=== PATIENT | female | born 1990 | race African-American/Black ===

== ENCOUNTER 2020-12-24 22:01 | Emergency (ER) | payer OTHER, BC ==
[~2020-12-24] VITALS: Ht 157.5 cm; Wt 91.4 kg
[2020-12-25 00:15] VITALS: BP 115/61
== END 2020-12-25 00:36 | disposition home or self-care (01) | DRG 563 ==
LOC: ED 22:01
DX: S93.401A Sprain of unspecified ligament of right ankle, initial encounter (principal); S70.211A Abrasion, right hip, initial encounter; V58.0XXA Driver of pick-up truck or van injured in noncollision transport accident in nontraffic accident, initial encounter; Y93.89 Activity, other specified; Y92.149 Unspecified place in prison as the place of occurrence of the external cause; Y99.0 Civilian activity done for income or pay